=== PATIENT | male | born 1990 | race Caucasian/White ===

== ENCOUNTER 2021-10-22 14:44 | Outpatient (REF) | payer BC, MEDICAID, SELFPAY ==
[2021-10-22 16:11] LABS: Influenza A PCR NEGATIVE (Negative); Influenza B PCR NEGATIVE (Negative); Resp Syncy Virus RNA Qual PCR NEGATIVE (Negative); SARS COV2 PCR INHOUSE POSITIVE (Negative)
== END 2021-10-22 14:45 | disposition home or self-care (01) ==
LOC: HO.LNP 14:44
PROVIDERS: Visit Provider Physician Assistant
DX: R05.9 Cough, unspecified (principal); Z28.9 Immunization not carried out for unspecified reason; Z20.822 Contact with and (suspected) exposure to COVID-19
CPT/HCPCS: 0241U

== ENCOUNTER 2022-12-23 05:39 | Emergency (ER) | payer BC, MEDICAID, SELFPAY ==
[2022-12-23 06:09] VITALS: BP 137/92; PULSE 86; RESP 16; TEMP 37.3; O2SAT 96; BMI 33.4
[2022-12-23 06:40] LABS: IDNOW Serial# 6674DD1D; Strep A Nucleic Acid Negative (Negative)
[2022-12-23 07:10] LABS: Influenza A PCR NEGATIVE (Negative); Influenza B PCR NEGATIVE (Negative); Resp Syncy Virus RNA Qual PCR NEGATIVE (Negative); SARS COV2 PCR INHOUSE NEGATIVE (Negative)
--- NOTE | 2022-12-23 08:20 | ED.URI ---
HPI - URI/Sore Throat General Chief Complaint: General Medical Stated Complaint: Flu like Time Seen by Provider: 12/23/22 08:06 Source: patient Mode of arrival: ambulatory Limitations: no limitations History of Present Illness HPI Narrative: Patient is a 32-year-old male presents emergency department for evaluation of upper respiratory symptoms. He reports that his entire family is ill at home with similar symptoms. His symptoms began 2 days ago with nonproductive cough, sore throat, nasal congestion, headache and mild body aches. Denies any fevers, chills, chest pain, shortness of breath, difficulty breathing, nausea, vomiting, abdominal pain, numbness or tingling of the extremities, neck pain, neck stiffness Related Data Home Medications Medication Instructions Recorded Confirmed No Known Home Meds 10/22/21 10/22/21 Allergies Allergy/AdvReac Type Severity Reaction Status Date / Time LOBSTER Allergy Unknown SWELLING Uncoded 10/22/21 13:00 Review of Systems Review of Systems: Constitutional: No fever. No chills. No weakness. Positive fatigue. ENT/ Mouth: No Ear Pain, positive Nasal Congestion, positive sore throat, No Rhinorrhea, No Swallowing Difficulty Skin: No rash or itching. Cardiovascular: No chest pain. No palpitations. Respiratory: No shortness of breath. Positive cough. No sputum production. Gastrointestinal: No nausea. No vomiting. No diarrhea. No abdominal pain. Genitourinary: No burning micturition. No urinary frequency. Neurologic: Positive headache. No dizziness. No syncope. No numbness or tingling in the extremities. Musculoskeletal: Positive myalgias No back pain. No joint pain or stiffness. Yes all other systems are reviewed and are negative [facility] Past Medical History Attestation statement: The following information was validated with the patient. Source: old records reviewed Social History Social History Patient Tobacco Use Status: Never used Tobacco Advance Directives: No Advance Directives Information Provided: No Physical Exam Vital Signs: Vital Signs: Last Vital Signs Temp 99.2 F 12/23/22 06:09 Pulse 86 12/23/22 06:09 Resp 16 12/23/22 06:09 BP 137/92 H 12/23/22 06:09 Pulse Ox 96 12/23/22 06:09 O2 Del Method 12/23/22 06:09 BMI result Body Mass Index 33.4 Vital signs have been reviewed as normal and appeared to be correct. Blood pressure normal.? Heart rate normal.? Respiration rate normal. Temperature normal.? Oxygen saturation normal. Appearance: Alert.?Oriented to person, place and time. No acute distress.?Normal affect. Eyes: Pupils equal, round and reactive to light.? ENT: TM normal bilaterally. Pharynx erythematous, uvula midline, no tonsillar hypertrophy or tonsillar exudates. No trismus. No drooling.?? Neck: Normal inspection.? Neck supple.??No cervical adenopathy CVS: Heart sounds normal. Normal heart rate and rhythm.? Pulses normal.?? Respiratory: No respiratory distress.? Lung sounds clear to auscultation bilaterally?? Abdomen: Soft and non-tender. Normoactive bowel sounds. Skin: Skin warm and dry.? Normal skin color.? ? Extremities: No lower extremity edema.? Neuro: Moves all extremities spontaneously. Sensation intact bilaterally. No motor deficits. Ambulates with normal steady gait. Medical Decision Making Medical Decision Making [facility] Narrative: Patient is a 32-year-old male with no reported past medical history, presenting for evaluation of upper respiratory symptoms. COVID-19 testing negative. Influenza testing negative. Strep a testing is negative. At this time history and physical exam not consistent with ACS/PE/pneumonia, therefore chest x-ray was deferred though considered. Examination not consistent with peritonsillar or retropharyngeal abscess.. Well-appearing, nontoxic, afebrile, no tachycardia or tachypnea/hypoxia. Speaking clear full sentences, ambulatory with steady gait. Discussed conservative treatment including rest, hydration, Tylenol/ibuprofen as needed for fever and body aches, saline nasal spray, humidifier, [id number] cold medication. Advised to follow-up with primary care provider as needed, discussed reasons to return back to the emergency department. All questions were answered. Patient discharged home in stable condition. Provided with a return to work note. Differential Diagnosis Differential Diagnoses: The differential diagnosis associated with the presentation includes (As noted above) Lab Data [facility] Lab Attestation statement: I reviewed the patient's lab results. Labs: Lab Results 12/23/22 12/23/22 Range/Units 06:20 06:20 Influenza Type A (PCR) NEGATIVE (Negative) Influenza Type B (PCR) NEGATIVE (Negative) RSV RNA Qual (PCR) NEGATIVE (Negative) SARS-CoV-2 RNA (RT-PCR) NEGATIVE (Negative) S. pyogenes GrpA ADITI Negative (Negative) Tests considered The following testing was considered but not selected: As noted above Prescription Management I considered prescription management with: Antibiotic (However at this time I suspect viral etiology as a cause for symptoms therefore antibiotics were deferred.) Discharge Plan Discharge Clinical Impression: Upper respiratory infection Patient Disposition: Home, Self-Care Instructions: Upper Respiratory Infection (ED) Additional Instructions: Be sure to rest, stay well hydrated drinking plenty of fluids, eat small frequent meals. Tylenol/ibuprofen can be used as needed for fever/pain. [id number] cold medications may be helpful as well for symptoms. Saline nasal spray, humidifier may be helpful for nasal congestion. You may return to the emergency department with any new or worsening symptoms or concerns. Follow-up with your primary care provider as needed. Prescriptions: No Action No Known Home Meds Referrals: Physician,None [Primary Care Provider] - Stand Alone Forms: Work/School Release
== END 2022-12-23 08:37 | disposition home or self-care (01) ==
PROVIDERS: Emergency Provider Emergency Medicine
DX: J06.9 Acute upper respiratory infection, unspecified (principal); R05.9 Cough, unspecified; J02.9 Acute pharyngitis, unspecified; Z20.822 Contact with and (suspected) exposure to COVID-19; Z20.828 Contact with and (suspected) exposure to other viral communicable diseases
CPT/HCPCS: 0241U; 36415; 87651; 99282; 99283

== ENCOUNTER 2023-02-02 09:27 | Emergency (ER) | payer MEDICAID, SELFPAY ==
--- NOTE | ~2023-02-02 | XR_ITS ---
EXAMINATION: XR KNEE, LEFT CLINICAL INFORMATION: Injury. COMPARISON: None available. TECHNIQUE: Four views of the left knee. FINDINGS: There is mild subarachnoid joint effusion. The tricompartment joint space is maintained normal. No fracture, dislocation, loose bodies or bony erosive changes. XR/XR knee LT 4V IMPRESSION: Mild suprapatellar joint effusion is suspected. No visible acute fracture or dislocation seen.
[2023-02-02 09:37] VITALS: BP 134/89; PULSE 74; RESP 18; TEMP 37.1; O2SAT 98; BMI 33.0
--- NOTE | 2023-02-02 11:48 | ED.EXTPRO ---
HPI - Extremity Problem General Chief complaint: Extremity Problem Stated complaint: L knee pain Time Seen by Provider: 02/02/23 10:56 History of Present Illness HPI Narrative: Patient complains of left knee pain and swelling after twisting it yesterday playing basketball, he is able to walk on it but is uncomfortable, he denies any other injury no head injury no neck injury no neck pain no headache no back pain no numbness no weakness no tingling Related Data Previous Rx's Medication Instructions Recorded ibuprofen 600 mg tablet 600 mg PO Q6H PRN pain #20 tabs 02/02/23 Allergies Allergy/AdvReac Type Severity Reaction Status Date / Time LOBSTER Allergy Unknown SWELLING Uncoded 10/22/21 13:00 [facility] Past Medical History Source: nursing notes reviewed Social History Social History Patient Tobacco Use Status: Never used Tobacco Advance Directives: No Advance Directives Information Provided: Yes Physical Exam Vital Signs: Vital Signs: Last Vital Signs Temp 98.8 F 02/02/23 09:37 Pulse 74 02/02/23 09:37 Resp 18 02/02/23 09:37 BP 134/89 02/02/23 09:37 Pulse Ox 98 02/02/23 09:37 O2 Del Method Room Air 02/02/23 09:37 BMI result Body Mass Index 33.0 General appearance comfortable no distress The head is normocephalic atraumatic Neck is supple nontender Respiratory no distress The back full range of motion Extremities the left knee had some mild swelling superior to the patella, there was tenderness diffusely around the joint, there was no ligamentous laxity, patient can do a straight leg raise, he can ambulate easily with a limp, no redness no warmth, skin is intact Other extremities normal Course Course Course Narrative: X-ray showed a small suprapatellar effusion, no bony injury no fractures Patient has a hinged knee brace which makes it feel more comfortable, he did not need crutches and is ambulating easily with a small limp and will follow with orthopedist Discharge Plan Discharge Clinical Impression: Left knee sprain Patient Disposition: Home, Self-Care Additional Instructions: X-ray did not show any broken bones, but x-ray does not show soft tissue Follow with orthopedist if pain and discomfort continues and they may get an MRI which does show the soft tissue Return any time any worse condition or any concerns Apply ice elevate leg Motrin as needed Prescriptions: New ibuprofen 600 mg tablet 600 mg PO Q6H PRN (Reason: pain) Qty: 20 0RF Referrals: Sal Harrington MD [Physician] - (Knee sprain)
== END 2023-02-02 12:01 | disposition home or self-care (01) ==
PROVIDERS: Emergency Provider Emergency Medicine
DX: M25.562 Pain in left knee (principal)
CPT/HCPCS: 73564; 99282; 99283

== ENCOUNTER 2023-02-22 10:34 | Outpatient (REF) | payer MEDICAID, SELFPAY | END 2023-02-22 10:35 | disposition home or self-care (01) | LOC: HO.HOSX 10:34 | PROVIDERS: Visit Provider Physician Assistant | DX: Z13.89 Encounter for screening for other disorder (principal) ==